=== PATIENT | female | born 1960 | race Asian ===

== ENCOUNTER 2024-06-21 10:42 | Day surgery (SDC) | payer OTHER, SELFPAY ==
[2024-06-21 11:17] VITALS: BP 121/89; PULSE 91; RESP 14; TEMP 36.2; O2SAT 96
--- NOTE | 2024-06-21 11:34 | P.HP_ITS ---
History of Present Illness History of Present Illness Chief complaint: Screening Colonoscopy [facility] Social History Smoking Status: Never smoker alcohol intake: never Meds Home Medications and Allergies Home Medications Medication Instructions Recorded Confirmed Type albuterol sulfate 90 mcg/actuation inhalation 06/21/24 History aerosol inhaler fluticasone propionate 115 2 puff inhalation BID 06/21/24 06/21/24 History mcg-salmeterol 21 mcg/actuation HFA inhaler (Advair HFA) losartan 50 mg tablet 50 mg PO DAILY 06/21/24 06/21/24 History meloxicam 15 mg tablet 15 mg PO DAILY 06/21/24 06/21/24 History Allergies Allergy/AdvReac Type Severity Reaction Status Date / Time No Known Drug Allergies Allergy Verified 06/21/24 11:15 Exam Vital Signs (past 8 hours): - 06/21/24 11:17 Temperature 97.2 F L Pulse Rate 91 H Respiratory Rate 14 Blood Pressure 121/89 Pulse Oximetry 96 Oxygen Delivery Method Room Air Oxygen Delivery Method Room Air Assessment & Plan Assessment & Plan narrative: Follow-up screening colonoscopy after one several years ago and negative Cologuard 2 years ago. Risks, benefits, alternatives have been explained. Time-Based Coding :: [TOTAL MINUTES] spent with patient and on the chart (including review of chart, obtaining history, exam, reviewing outside data, placing orders, documenting exam and treatment plan, and counseling patient) on [DATE].
--- NOTE | 2024-06-21 11:34 | PM.OP.COLON ---
Operative Date/Time/Diagnoses Date of procedure: 06/21/24 Pre-op diagnosis: See indication and findings Procedure & Clinicians Study performed: Colonoscopy Indications: Follow-up screening colonoscopy. Last with Cologuard 2 years ago which was negative Surgeon: Marv Hernandez Procedure Notes Procedure in detail: After informed consent was obtained the patient was placed in a left lateral decubitus position. The video colonoscope was introduced the rectum and slowly advanced cecum. Preparation was good. On slow withdrawal mucosa was carefully examined. The scope was removed. The patient tolerated the procedure well. Blood loss none Complications none Sedation mac Findi normal colonoscopy to cecum Patient should have follow-up colonoscopy in 10 years Ngs 1.
[2024-06-21 12:46] VITALS: BP 112/82; PULSE 74; RESP 12; TEMP 36.1; O2SAT 96
[2024-06-21 12:51] VITALS: BP 107/71; PULSE 71; RESP 20; O2SAT 95
[2024-06-21 12:57] VITALS: BP 94/58; PULSE 66; RESP 1; TEMP 36.5; O2SAT 97
[2024-06-21 13:00] VITALS: BP 97/64; PULSE 61
== END 2024-06-21 13:18 | disposition home or self-care (01) ==
PROVIDERS: PCP Nurse Practitioner Family; Referring Provider Nurse Practitioner Family; Visit Provider Internal Medicine Gastroenterology
PROC: 0DJD8ZZ Inspection of Lower Intestinal Tract, Via Natural or Artificial Opening Endoscopic (ICD-10-PCS; CPT 45378; principal; 2024-06-21 13:30)
DX: Z12.11 Encounter for screening for malignant neoplasm of colon (principal)
CPT/HCPCS: 45378; J2704